=== PATIENT | male | born 1955 | race African-American/Black ===

== ENCOUNTER → 2022-01-11 | Outpatient (CLI) | payer MEDICARE, OTHER ==
[~2022-01-11] VITALS: Ht 175.3 cm; Wt 83.0 kg
[2022-01-11 11:10] VITALS: BP 117/75
== END | disposition home or self-care (01) ==
LOC: SRCNTR 10:46
PROVIDERS: ATTEND Internal Medicine
DX: I10 Essential (primary) hypertension (principal); R05.9 Cough, unspecified; M19.90 Unspecified osteoarthritis, unspecified site
CPT/HCPCS: G0463

== ENCOUNTER → 2022-02-08 | Outpatient (CLI) | payer MEDICARE, OTHER ==
[~2022-02-08] MED LIST: AMLO10TA4 PO; ASPI81TA87 PO; CELE200 PO; CYAN250014 PO; FISH1 PO; LIFI1DRO OU; METF-845 PO; XALA2.5OS OU
[2022-02-08 11:40] VITALS: BP 121/72
== END | disposition home or self-care (01) ==
LOC: SRCNTR 11:16
PROVIDERS: ATTEND Internal Medicine
DX: I10 Essential (primary) hypertension (principal); M19.90 Unspecified osteoarthritis, unspecified site; K21.9 Gastro-esophageal reflux disease without esophagitis; R09.82 Postnasal drip; R05.9 Cough, unspecified
CPT/HCPCS: G0463; Z7500